=== PATIENT | female | born 1985 | race Caucasian/White ===

== ENCOUNTER 2023-06-29 01:56 | Emergency (ER) | payer BC, OTHER, MEDICAID, SELFPAY ==
[2023-06-29] VITALS (14 sets, daily range): BP systolic 122–155; BP diastolic 62–115; PULSE 62–87; RESP 14–26; TEMP 36.8; O2SAT 99–100; BMI 24.7
--- NOTE | 2023-06-29 01:59 | ED_ITS ---
HPI - General Adult <DO Maria Antonia Claudio Last Filed: 06/30/23 04:06> General Chief complaint: Toxicology Problem Stated complaint: allergic reaction to medication Time Seen by Provider: 06/29/23 01:59 History of Present Illness HPI narrative: 38-year-old female smoker with significant alcohol history presents with headache, feeling anxious and fidgety, concerned that she is going through withdrawal. She states that she is gone through withdrawal in the past and this feels similar. Her last drink was about 24-48 hours ago. She states that she drinks between a pt and a 5th per day. She is never gone to detox or any kind of rehab before. She wants help in her intent is to quit drinking. She states she is never had seizures before from alcohol withdrawal. She feels anxious and agitated, she is shaky and tremulous. She has trouble breathing and states her abdomen hurts and she is nauseated. Related Data Allergies Allergy/AdvReac Type Severity Reaction Status Date / Time No Known Drug Allergies Allergy Verified 06/29/23 02:49 Review of Systems <DO Maria Antonia Claudio Last Filed: 06/30/23 04:06> Review of Systems Narrative: GENERAL: See HPI HEENT: Denies sinus pain, ear pain, sore throat, difficulty swallowing, dizziness. RESPIRATORY: Denies dyspnea, cough, wheezing, hemoptysis, sputum. CARDIOVASCULAR: See HPI GASTROINTESTINAL: See HPI : Denies dysuria, frequency, incontinence, hematuria, urinary retention. MUSCULOSKELETAL: denies weakness, joint pain, or bony pain SKIN: Denies rash, skin lesions, or other NEUROLOGIC: See HPI PSYCHIATRIC: No concerning psychosocial issues. 12 point review of systems is negative except for those stated above Exam <DO Maria Antonia Claudio Last Filed: 06/30/23 04:06> Narrative Exam Narrative: GENERAL: [38] year old patient appears stated age. Well-developed patient, in mild distress. Anxious, agitated HEAD: Atraumatic. Normocephalic. EYES: Pupils equal round and reactive. Extraocular motions intact. No scleral icterus. No injection or drainage. ENT: Nose without bleeding, purulent drainage. Throat without erythema, tonsillar hypertrophy or exudate. Airway patent. NECK: Trachea midline. Non tender CARDIOVASCULAR: Regular rate and rhythm without murmurs, gallops, or rubs. RESPIRATORY: Clear to auscultation. Breath sounds equal bilaterally. No wheezes, rales, or rhonchi. GASTROINTESTINAL: Abdomen soft, non-tender, nondistended. EXTREMITIES: No edema or joint tenderness. Tremor with arms extended BACK: Nontender without deformity or crepitance. No flank tenderness. NEURO: AOx3. Cranial nerves 2-12 grossly intact SKIN: No rash or erythema of visible areas Initial Vital Signs Initial Vital Signs: Vital Signs Temperature 98.2 F 06/29/23 02:01 Pulse Rate 87 06/29/23 02:01 Respiratory Rate 18 06/29/23 02:01 Blood Pressure 155/115 H 06/29/23 02:01 Pulse Oximetry 100 06/29/23 02:01 Oxygen Delivery Method Room Air 06/29/23 02:01 <Erich Wolf MD - Last Filed: 07/07/23 09:16> Initial Vital Signs Initial Vital Signs: Vital Signs Temperature 98.2 F 06/29/23 02:01 Pulse Rate 87 06/29/23 02:01 Respiratory Rate 18 06/29/23 02:01 Blood Pressure 155/115 H 06/29/23 02:01 Pulse Oximetry 100 06/29/23 02:01 Oxygen Delivery Method Room Air 06/29/23 02:01 Course <Lm Huang DO - Last Filed: 06/30/23 04:06> Orders Ordered: Discontinued Medications Sodium Chloride (Normal Saline 0.9%) 1,000 mls @ 1,000 mls/hr IV BOLUS ONE Stop: 06/29/23 03:05 Last Infusion: 06/29/23 03:31 Dose: 0 mls/hr Documented By: Admin: 06/29/23 02:38 Dose: 1,000 mls/hr Documented By: ALICIA Thiamine HCl 200 mg/ Sodium (Chloride) 102 mls @ 408 mls/hr IV NOW ONE Stop: 06/29/23 02:07 Last Infusion: 06/29/23 03:03 Dose: 0 mls/hr Documented By: Admin: 06/29/23 02:38 Dose: 408 mls/hr Documented By: ALICIA Phenobarbital (Phenobarbital 65 Mg/Ml Vial) 260 mg IV NOW ONE Stop: 06/29/23 02:07 Last Admin: 06/29/23 02:36 Dose: 260 mg Documented By: ALICIA Phenobarbital (Phenobarbital 65 Mg/Ml Vial) 130 mg IV NOW ONE Stop: 06/29/23 03:11 Last Admin: 06/29/23 03:18 Dose: 130 mg Documented By: ALICIA Reevaluation(s) Reevaluation #1: Patient with significant improvement after phenobarb Vital Signs Vital signs: Vital Signs - 8 hr 06/29/23 02:01 06/29/23 02:50 06/29/23 03:00 Temperature 98.2 F Pulse Rate 87 70 69 Respiratory Rate 18 16 16 Blood Pressure 155/115 H 138/107 H 141/103 H Pulse Oximetry 100 100 100 Oxygen Delivery Method Room Air Room Air Room Air 06/29/23 04:30 06/29/23 03:40 06/29/23 05:00 Temperature Pulse Rate 72 64 63 Respiratory Rate 14 14 16 Blood Pressure 129/62 136/92 H Pulse Oximetry 99 100 100 Oxygen Delivery Method Room Air Room Air Room Air 06/29/23 05:09 06/29/23 05:30 06/29/23 05:30 Temperature Pulse Rate 62 81 Respiratory Rate 16 17 Blood Pressure 132/87 Pulse Oximetry 100 100 Oxygen Delivery Method Room Air Room Air 06/29/23 06:00 06/29/23 06:30 06/29/23 07:00 Temperature Pulse Rate 84 75 69 Respiratory Rate 26 H Blood Pressure 122/78 125/93 H Pulse Oximetry 100 100 Oxygen Delivery Method Room Air Room Air 06/29/23 07:20 06/29/23 07:20 06/29/23 07:30 Temperature Pulse Rate 72 74 Respiratory Rate 24 14 Blood Pressure 125/91 H Pulse Oximetry 100 100 Oxygen Delivery Method Room Air Room Air <Erich Wolf MD - Last Filed: 07/07/23 09:16> Orders Ordered: Discontinued Medications Sodium Chloride (Normal Saline 0.9%) 1,000 mls @ 1,000 mls/hr IV BOLUS ONE Stop: 06/29/23 03:05 Last Infusion: 06/29/23 03:31 Dose: 0 mls/hr Documented By: Admin: 06/29/23 02:38 Dose: 1,000 mls/hr Documented By: ALICIA Thiamine HCl 200 mg/ Sodium (Chloride) 102 mls @ 408 mls/hr IV NOW ONE Stop: 06/29/23 02:07 Last Infusion: 06/29/23 03:03 Dose: 0 mls/hr Documented By: Admin: 06/29/23 02:38 Dose: 408 mls/hr Documented By: ALICIA Phenobarbital (Phenobarbital 65 Mg/Ml Vial) 260 mg IV NOW ONE Stop: 06/29/23 02:07 Last Admin: 06/29/23 02:36 Dose: 260 mg Documented By: ALICIA Phenobarbital (Phenobarbital 65 Mg/Ml Vial) 130 mg IV NOW ONE Stop: 06/29/23 03:11 Last Admin: 06/29/23 03:18 Dose: 130 mg Documented By: ALICIA Vital Signs Vital signs: Vital Signs - 8 hr 06/29/23 02:01 06/29/23 02:50 06/29/23 03:00 Temperature 98.2 F Pulse Rate 87 70 69 Respiratory Rate 18 16 16 Blood Pressure 155/115 H 138/107 H 141/103 H Pulse Oximetry 100 100 100 Oxygen Delivery Method Room Air Room Air Room Air 06/29/23 04:30 06/29/23 03:40 06/29/23 05:00 Temperature Pulse Rate 72 64 63 Respiratory Rate 14 14 16 Blood Pressure 129/62 136/92 H Pulse Oximetry 99 100 100 Oxygen Delivery Method Room Air Room Air Room Air 06/29/23 05:09 06/29/23 05:30 06/29/23 05:30 Temperature Pulse Rate 62 81 Respiratory Rate 16 17 Blood Pressure 132/87 Pulse Oximetry 100 100 Oxygen Delivery Method Room Air Room Air 06/29/23 06:00 06/29/23 06:30 06/29/23 07:00 Temperature Pulse Rate 84 75 69 Respiratory Rate 26 H Blood Pressure 122/78 125/93 H Pulse Oximetry 100 100 Oxygen Delivery Method Room Air Room Air 06/29/23 07:20 06/29/23 07:20 06/29/23 07:30 Temperature Pulse Rate 72 74 Respiratory Rate 24 14 Blood Pressure 125/91 H Pulse Oximetry 100 100 Oxygen Delivery Method Room Air Room Air Medical Decision Making <Lm Huang, - Last Filed: 06/30/23 04:06> Lab Data 06/29/23 02:34 06/29/23 02:34 Labs: Lab Results 06/29/23 06/29/23 06/29/23 Range/Units 02:34 02:34 02:34 WBC 4.9 (4.5-11.0) X10^3/uL RBC 4.36 (4.0-5.2) X10^6/uL Hgb 13.9 (12.0-16.0) g/dL Hct 40.4 (36-46) % MCV 92.8 (80-100) fL MCH 32.0 (26-34) PG MCHC 34.4 (30-36) % RDW 13.1 (11.6-14.8) % Plt Count 344 (150-400) X10^3/uL Neut % (Auto) 56.0 (50-75) % Lymph % (Auto) 32.4 (25-40) % [place] % (Auto) 8.9 (3-14) % Eos % (Auto) 1.8 L (2-4) % Baso % (Auto) 0.9 (0-2) % Neut # (Auto) 2700 (1735-4306) /uL Lymph # (Auto) 1600 (2306-6580) /uL [place] # (Auto) 400 (0-900) /uL Eos # (Auto) 100 (0-450) /uL Baso # (Auto) 0 (0-100) /uL PT 13.2 H (10.1-12.7) SECONDS INR 1.2 (0.9-1.3) Sodium 136 L (137-145) mmol/L Potassium 4.0 (3.4-5.1) mmol/L Chloride 101 (98-107) mmol/L Carbon Dioxide 23 (22-32) mmol/L BUN 8 (7-17) mg/dL Creatinine 0.56 (0.52-1.04) mg/dL Estimated GFR > 60 (>60) mL/min BUN/Creatinine Ratio 14.3 (6-22) Glucose 96 (70-100) mg/dL Calcium 9.6 (8.4-10.2) mg/dL Magnesium (1.6-2.3) mg/dL Total Bilirubin 0.9 (0.2-1.3) mg/dL AST 34 (14-36) IU/L ALT 24 (<35) IU/L Alkaline Phosphatase 73 (38-126) U/L Total Protein 8.6 H (6.3-8.2) g/dL Albumin 4.7 (3.5-5.0) g/dL Globulin 3.9 (1.7-4.1) g/dL Albumin/Globulin Ratio 1.2 (1.0-2.8) Lipase (23-300) U/L Ethyl Alcohol < 10 ( - 10) mg/dL 06/29/23 Range/Units 02:34 WBC (4.5-11.0) X10^3/uL RBC (4.0-5.2) X10^6/uL Hgb (12.0-16.0) g/dL Hct (36-46) % MCV (80-100) fL MCH (26-34) PG MCHC (30-36) % RDW (11.6-14.8) % Plt Count (150-400) X10^3/uL Neut % (Auto) (50-75) % Lymph % (Auto) (25-40) % [place] % (Auto) (3-14) % Eos % (Auto) (2-4) % Baso % (Auto) (0-2) % Neut # (Auto) (4014-8347) /uL Lymph # (Auto) (3882-6107) /uL [place] # (Auto) (0-900) /uL Eos # (Auto) (0-450) /uL Baso # (Auto) (0-100) /uL PT (10.1-12.7) SECONDS INR (0.9-1.3) Sodium (137-145) mmol/L Potassium (3.4-5.1) mmol/L Chloride (98-107) mmol/L Carbon Dioxide (22-32) mmol/L BUN (7-17) mg/dL Creatinine (0.52-1.04) mg/dL Estimated GFR (>60) mL/min BUN/Creatinine Ratio (6-22) Glucose (70-100) mg/dL Calcium (8.4-10.2) mg/dL Magnesium 1.6 (1.6-2.3) mg/dL Total Bilirubin (0.2-1.3) mg/dL AST (14-36) IU/L ALT (<35) IU/L Alkaline Phosphatase (38-126) U/L Total Protein (6.3-8.2) g/dL Albumin (3.5-5.0) g/dL Globulin (1.7-4.1) g/dL Albumin/Globulin Ratio (1.0-2.8) Lipase 76 (23-300) U/L Ethyl Alcohol ( - 10) mg/dL Point of Care Testing Test Results Negative Urine Dip Bedside Urine Glucose Negative Bedside Urine Bilirubin - Negative Bedside Urine Ketone + 15 Urine Specific [place] 1.020 Bedside Urine Occult Blood +/- Bedside Urine pH 6.0 Bedside Urine Protein - Negative Bedside Urine Urobilinogen - Negative Bedside Urine Nitrite - Negative Bedside Urine Leukocytes - Negative Esterase Point of care testing: Point of Care Testing Test Results Negative Urine Dip Bedside Urine Glucose Negative Bedside Urine Bilirubin - Negative Bedside Urine Ketone + 15 Urine Specific [place] 1.020 Bedside Urine Occult Blood +/- Bedside Urine pH 6.0 Bedside Urine Protein - Negative Bedside Urine Urobilinogen - Negative Bedside Urine Nitrite - Negative Bedside Urine Leukocytes - Negative Esterase MDM Narrative Medical decision making narrative: [38] year old patient presents with symptoms consistent with alcohol withdrawal, last drink 24-48 hours ago Multiple etiologies for patient's symptoms considered including, but not limited to: [Alcohol withdrawal versus other] Primary Historian: patient Labs reviewed and interpreted by myself: No significant lab abnormalities requiring specific intervention Patient presents with symptoms consistent with alcohol withdrawal. She is given 2 rounds of phenobarb at 260 and then 130 mg along with thiamine and has significant improvement. She is medically cleared for detox. Contacted [facility] who has a single female bed and they are reviewing the chart. At this time patient agrees with the diagnosis and plan 0700 -patient signed out to Dr. Wolf for final disposition <Erich Wolf MD - Last Filed: 07/07/23 09:16> Lab Data Labs: Lab Results 06/29/23 06/29/23 06/29/23 Range/Units 02:34 02:34 02:34 WBC 4.9 (4.5-11.0) X10^3/uL RBC 4.36 (4.0-5.2) X10^6/uL Hgb 13.9 (12.0-16.0) g/dL Hct 40.4 (36-46) % MCV 92.8 (80-100) fL MCH 32.0 (26-34) PG MCHC 34.4 (30-36) % RDW 13.1 (11.6-14.8) % Plt Count 344 (150-400) X10^3/uL Neut % (Auto) 56.0 (50-75) % Lymph % (Auto) 32.4 (25-40) % [place] % (Auto) 8.9 (3-14) % Eos % (Auto) 1.8 L (2-4) % Baso % (Auto) 0.9 (0-2) % Neut # (Auto) 2700 (9619-5457) /uL Lymph # (Auto) 1600 (0089-9354) /uL [place] # (Auto) 400 (0-900) /uL Eos # (Auto) 100 (0-450) /uL Baso # (Auto) 0 (0-100) /uL PT 13.2 H (10.1-12.7) SECONDS INR 1.2 (0.9-1.3) Sodium 136 L (137-145) mmol/L Potassium 4.0 (3.4-5.1) mmol/L Chloride 101 (98-107) mmol/L Carbon Dioxide 23 (22-32) mmol/L BUN 8 (7-17) mg/dL Creatinine 0.56 (0.52-1.04) mg/dL Estimated GFR > 60 (>60) mL/min BUN/Creatinine Ratio 14.3 (6-22) Glucose 96 (70-100) mg/dL Calcium 9.6 (8.4-10.2) mg/dL Magnesium (1.6-2.3) mg/dL Total Bilirubin 0.9 (0.2-1.3) mg/dL AST 34 (14-36) IU/L ALT 24 (<35) IU/L Alkaline Phosphatase 73 (38-126) U/L Total Protein 8.6 H (6.3-8.2) g/dL Albumin 4.7 (3.5-5.0) g/dL Globulin 3.9 (1.7-4.1) g/dL Albumin/Globulin Ratio 1.2 (1.0-2.8) Lipase (23-300) U/L Ethyl Alcohol < 10 ( - 10) mg/dL 06/29/23 Range/Units 02:34 WBC (4.5-11.0) X10^3/uL RBC (4.0-5.2) X10^6/uL Hgb (12.0-16.0) g/dL Hct (36-46) % MCV (80-100) fL MCH (26-34) PG MCHC (30-36) % RDW (11.6-14.8) % Plt Count (150-400) X10^3/uL Neut % (Auto) (50-75) % Lymph % (Auto) (25-40) % [place] % (Auto) (3-14) % Eos % (Auto) (2-4) % Baso % (Auto) (0-2) % Neut # (Auto) (6548-8583) /uL Lymph # (Auto) (6797-5821) /uL [place] # (Auto) (0-900) /uL Eos # (Auto) (0-450) /uL Baso # (Auto) (0-100) /uL PT (10.1-12.7) SECONDS INR (0.9-1.3) Sodium (137-145) mmol/L Potassium (3.4-5.1) mmol/L Chloride (98-107) mmol/L Carbon Dioxide (22-32) mmol/L BUN (7-17) mg/dL Creatinine (0.52-1.04) mg/dL Estimated GFR (>60) mL/min BUN/Creatinine Ratio (6-22) Glucose (70-100) mg/dL Calcium (8.4-10.2) mg/dL Magnesium 1.6 (1.6-2.3) mg/dL Total Bilirubin (0.2-1.3) mg/dL AST (14-36) IU/L ALT (<35) IU/L Alkaline Phosphatase (38-126) U/L Total Protein (6.3-8.2) g/dL Albumin (3.5-5.0) g/dL Globulin (1.7-4.1) g/dL Albumin/Globulin Ratio (1.0-2.8) Lipase 76 (23-300) U/L Ethyl Alcohol ( - 10) mg/dL Point of Care Testing Test Results Negative Urine Dip Bedside Urine Glucose Negative Bedside Urine Bilirubin - Negative Bedside Urine Ketone + 15 Urine Specific [place] 1.020 Bedside Urine Occult Blood +/- Bedside Urine pH 6.0 Bedside Urine Protein - Negative Bedside Urine Urobilinogen - Negative Bedside Urine Nitrite - Negative Bedside Urine Leukocytes - Negative Esterase Point of care testing: Point of Care Testing Test Results Negative Urine Dip Bedside Urine Glucose Negative Bedside Urine Bilirubin - Negative Bedside Urine Ketone + 15 Urine Specific [place] 1.020 Bedside Urine Occult Blood +/- Bedside Urine pH 6.0 Bedside Urine Protein - Negative Bedside Urine Urobilinogen - Negative Bedside Urine Nitrite - Negative Bedside Urine Leukocytes - Negative Esterase MDM Narrative Medical decision making narrative: [38] year old patient presents with symptoms consistent with alcohol withdrawal, last drink 24-48 hours ago Multiple etiologies for patient's symptoms considered including, but not limited to: [Alcohol withdrawal versus other] Primary Historian: patient Labs reviewed and interpreted by myself: No significant lab abnormalities requiring specific intervention Patient presents with symptoms consistent with alcohol withdrawal. She is given 2 rounds of phenobarb at 260 and then 130 mg along with thiamine and has significant improvement. She is medically cleared for detox. Contacted [facility] who has a single female bed and they are reviewing the chart. At this time patient agrees with the diagnosis and plan 0700 -patient signed out to Dr. Wolf for final disposition 7:[address] Wolf: Sign-out from Dr Huang. Patient here voluntarily. She is seeking rehabilitation for alcohol abuse. She is feeling much better at this time. Patient's medical records are being reviewed by rehabilitation facility this morning for acceptance. 0 at this time CIWA score 7:50 a.m.. Introduced myself to patient. At this time she is awake alert oriented x4. No tremors. CIWA score of 0. She is very cooperative. She states she does not desire to pursue rehabilitation or detox at this time th rough the emergency department. She desires discharge home and she will research on her own for facilities that she would like to go to. She is not familiar with the current facility that is reviewing her case. She has had rehab in the past. 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 I encouraged her to stay but she is voluntary and desires discharge home. No SI or HI. No altered mental status. No seizures or hallucinations. No tremors. No nausea or vomiting. She is up and walking with steady self gait no ataxia. Discharge Plan Departure Patient Disposition: Home Clinical Impression: Alcohol withdrawal syndrome Instructions: DI for Alcohol Use Disorder, DI for Drug or Alcohol Withdrawal Activity Restrictions/Additional Instructions: Please return if you change your mind for help for rehabilitation. See family doctor this week for re-evaluation. Call provided primary care referral phone number to establish family doctor. Call [phone] return if worse if any questions or concerns. No driving or operating machinery today. Stand Alone Forms: Patient Portal/API
[2023-06-29] MEDS: PHENobarbital 65 MG/ML VIAL 260 MG IV (02:36)
[2023-06-29] MEDS: SODIUM CHLORIDE 0.9% 1,000 ML 1000 ML IV (02:38)
[2023-06-29] MEDS: THIAMINE 200 MG in SODIUM CHLORIDE 0.9% 100 ML 408 MG IV (02:38)
[2023-06-29 02:48] LABS: Add Manual Diff / Slide Review NO; Basophils Absolute Auto 0 /uL (0-100); Basophils Percent Auto 0.9 % (0-2); Eosinophils Absolute Auto 100 /uL (0-450); Eosinophils Percent Auto 1.8 % (2-4); Hematocrit 40.4 % (36-46); Hemoglobin 13.9 g/dL (12.0-16.0); Lymphocytes Absolute Auto 1600 /uL (1100-4500); Lymphocytes Percent Auto 32.4 % (25-40); Mean Corpuscular HGB Conc 34.4 % (30-36); Mean Corpuscular Volume 92.8 fL (80-100); Monocytes Absolute Auto 400 /uL (0-900); Monocytes Percent Auto 8.9 % (3-14); Neutrophils Absolute Auto 2700 /uL (1500-7000); Platelet Count 344 X10^3/uL (150-400); Red Blood Cell Count 4.36 X10^6/uL (4.0-5.2); Red Cell Distribution Width 13.1 % (11.6-14.8); White Blood Cell Count 4.9 X10^3/uL (4.5-11.0)
[2023-06-29 02:56] LABS: Lipase 76 U/L (23-300); Magnesium 1.6 mg/dL (1.6-2.3)
[2023-06-29 02:57] LABS: Alanine Aminotransferase 24 IU/L (<35); Albumin 4.7 g/dL (3.5-5.0); Albumin Globulin Ratio 1.2 (1.0-2.8); Alkaline Phosphatase 73 U/L (38-126); Aspartate Aminotransferase 34 IU/L (14-36); BUN Creatinine Ratio 14.3 (6-22); Bilirubin Total 0.9 mg/dL (0.2-1.3); Blood Urea Nitrogen 8 mg/dL (7-17); Calcium 9.6 mg/dL (8.4-10.2); Carbon Dioxide 23 mmol/L (22-32); Chloride 101 mmol/L (98-107); Estimated Glomerular Filt Rate > 60 mL/min (>60); Ethanol (ETOH) < 10 mg/dL; Globulin 3.9 g/dL (1.7-4.1); Glucose 96 mg/dL (70-100); HEMOLYSIS 17 (0-50); Sodium 136 mmol/L (137-145); Total Protein 8.6 g/dL (6.3-8.2)
[2023-06-29 03:02] LABS: INR 1.2 (0.9-1.3); Prothrombin Time 13.2 SECONDS (10.1-12.7)
[2023-06-29] MEDS: PHENobarbital 65 MG/ML VIAL 130 MG IV (03:18)
--- NOTE | 2023-06-29 07:33 | PC.NURSE ---
I talked with patient to see how she is feeling, she states she is feeling much better and since we do not currently have an inpatient bed status for her she wants to follow up outpatient with [facility]. She wants to go home and follow up from their. Ciwa scale 1. I updated Doctor Luciano.
== END 2023-06-29 08:43 | disposition home or self-care (01) ==
PROVIDERS: Emergency Medicine; Emergency Provider Emergency Medicine
DX: F10.239 Alcohol dependence with withdrawal, unspecified (principal)
CPT/HCPCS: 36415; 80053; 80320; 81003; 81025; 83690; 83735; 85025; 85610; 96361; 96374; 96375; 99284; J2560